=== PATIENT | male | born 1980 | race Two or more races ===

== ENCOUNTER 2019-04-08 09:18 | Inpatient (IN) | payer SELFPAY ==
--- NOTE | 2019-04-08 09:41 | ER Document Report ---
ED Medical Screen (RME) - General Chief Complaint: Blood Pressure Problem Stated Complaint: DIZZINESS Time Seen by Provider: 04/08/19 09:40 Primary Care Provider: SHERIE CASTRO [Primary Care Provider] - Follow up as needed Notes: Barbara neda. 38-year-old male presents with dizziness for 1 month. Patient states it got worse yesterday. States it is more constant than usual. No nausea no vomiting. Patient states he has felt chills and coughing since yesterday. Nontoxic, well-appearing. I have greeted and performed a rapid initial assessment of this patient. A comprehensive ED assessment and evaluation of the patient, analysis of test results and completion of the medical decision making process with be conducted by additional ED providers. Physical Exam - Vital signs Vitals: Temp Pulse Resp BP Pulse Ox 97.4 F 97 16 112/79 98 04/08/19 09:26 04/08/19 09:26 04/08/19 09:26 04/08/19 09:26 04/08/19 09:26 Course - Vital Signs Vital signs: Temp Pulse Resp BP Pulse Ox 97.4 F 97 16 112/79 98 04/08/19 09:26 04/08/19 09:26 04/08/19 09:26 04/08/19 09:26 04/08/19 09:26 Doctor's Discharge - Discharge Referrals: SHERIE CASTRO [Primary Care Provider] - Follow up as needed
[2019-04-08 10:32] LABS: ABSOLUTE LYMPHOCYTES (AUTO) 0.9 10^3/uL (0.5-4.7); ABSOLUTE MONOCYTES (AUTO) 0.3 10^3/uL (0.1-1.4); ABSOLUTE NEUT (AUTO) 6.5 10^3/uL (1.7-8.2); BASOPHILS % (AUTO) 0.1 % (0-2); HEMOGLOBIN 18.1 g/dL (13.5-17.0); LYMPHOCYTES % (AUTO) 11.2 % (13-45); MEAN CORPUSCULAR HEMOGLOBIN 30.5 pg (27.0-33.4); MEAN CORPUSCULAR HGB CONC 31.3 g/dL (32.0-36.0); MEAN CORPUSCULAR VOLUME 97 fl (80-97); MONOCYTES % (AUTO) 3.9 % (3-13); PLATELET COUNT 306 10^3/uL (150-450); RED BLOOD COUNT 5.94 10^6/uL (4.35-5.55); RED CELL DISTRIBUTION WIDTH 13.6 % (11.5-14.0); SEGMENTED NEUTROPHILS % (AUTO) 84.8 % (42-78); TOTAL CELLS COUNTED % (AUTO) 100 %; WHITE BLOOD COUNT 7.6 10^3/uL (4.0-10.5)
[2019-04-08 10:34] LABS: APPEARANCE,URINE CLEAR; BILIRUBIN,URINE NEGATIVE (NEGATIVE); COLOR,URINE COLORLESS; GLUCOSE, URINE >=500 mg/dL (NEGATIVE); KETONES,URINE 80 mg/dL (NEGATIVE); PROTEIN,URINE NEGATIVE (NEGATIVE); UROBILINOGEN,URINE NEGATIVE mg/dL (<2.0)
[2019-04-08 10:34] LABS: HEMATOCRIT 57.9 % (37.9-51.0)
--- NOTE | 2019-04-08 10:38 | RADIOLOGY REPORT (SQ) ---
EXAM DESCRIPTION: CHEST 2 VIEWS COMPLETED DATE/TIME: 04/08/2019 10:16 am REASON FOR STUDY: cough COMPARISON: None. EXAM PARAMETERS: NUMBER OF VIEWS: two views TECHNIQUE: Digital Frontal and Lateral radiographic views of the chest acquired. RADIATION DOSE: NA LIMITATIONS: none FINDINGS: LUNGS AND PLEURA: No opacities, masses or pneumothorax. No pleural effusion. MEDIASTINUM AND HILAR STRUCTURES: No masses or contour abnormalities. HEART AND VASCULAR STRUCTURES: Heart normal size. No evidence for failure. BONES: No acute findings. HARDWARE: None in the chest. OTHER: No other significant finding. IMPRESSION: NO ACUTE RADIOGRAPHIC FINDING IN THE CHEST. TECHNICAL DOCUMENTATION: JOB ID: [id number]- All Rights Reserved Reading location - IP/workstation name: [email or web address]
[2019-04-08 11:00] LABS: ALKALINE PHOSPHATASE 180 U/L (38-126); ASPARTATE AMINO TRANSFERASE 40 U/L (17-59); BILIRUBIN,DIRECT 0.4 mg/dL (0.0-0.4); BILIRUBIN,TOTAL 0.6 mg/dL (0.2-1.3); BLOOD UREA NITROGEN 33 mg/dL (7-20); CALCIUM 10.8 mg/dL (8.4-10.2); CHLORIDE 97 mmol/L (98-107); POTASSIUM 5.7 mmol/L (3.6-5.0)
[2019-04-08 11:05] LABS: TOTAL PROTEIN 7.8 g/dL (6.3-8.2)
[2019-04-08 11:09] LABS: CARBON DIOXIDE 16 mmol/L (22-30)
[2019-04-08 11:15] LABS: ANION GAP 31 (5-19)
[2019-04-08 11:17] LABS: GLUCOSE 1203 mg/dL (75-110)
--- NOTE | 2019-04-08 11:20 | ER Document Report ---
ED General - General Chief Complaint: Dizziness Stated Complaint: DIZZINESS Time Seen by Provider: 04/08/19 09:40 Primary Care Provider: SHERIE CASTRO [NO LOCAL MD] - Follow up as needed Notes: HPI: Patient is a 38-year male with no past medical history who states for 3 weeks a multitude of symptoms. He states a mild intermittent headache, lightheadedness, some chest discomfort without palpitations or radiation to his back. He also states some bilateral leg pain. He states also he has been having some feelings of needing to urinate but states a decreased amount of urine. He denies any back pain, fevers, vomiting, or diarrhea. We used the environmental health nurse for my interview. ROS: See HPI All other review of systems reviewed and otherwise negative Reviewed vital signs and nursing note as charted by RN. PHYSICAL EXAM: CONSTITUTIONAL: Alert and oriented and responds appropriately to questions. Well-appearing; well-nourished HEAD: Normocephalic; atraumatic EYES: PERRL; no nystagmus noted; sclerae non-icteric ENT: Normal nose; no rhinorrhea; moist mucous membranes; pharynx without lesions noted NECK: Supple without meningismus; non-tender; no cervical lymphadenopathy, no masses CARD: Regular rate and rhythm; no murmurs; symmetric distal pulses RESP: Normal chest excursion without splinting or tachypnea; breath sounds clear and equal bilaterally; no wheezes, no rhonchi, no rales ABD/GI: Normal bowel sounds; non-distended; soft, non-tender; no palpable organomegaly or masses BACK: The back appears normal and is non-tender to palpation to deep palpation of all 4 quadrants of the abdomen EXT: Normal ROM in all joints; non-tender to palpation; no edema SKIN: No acute lesions noted NEURO: CN 2-12 intact; 5/5 bilateral upper and lower extremity strength with sensation intact to light touch PSYCH: The patient's mood and manner are appropriate. Grooming and personal hyg iene are appropriate. TRAVEL OUTSIDE OF THE [place] IN LAST 30 DAYS: No - Related Data Allergies/Adverse Reactions: No Known Allergies Allergy (Verified 04/08/19 09:49) Home Medications: metoporolol ER 100mg daily. zyrtec 10mg daily. Zpack follow instructions on bottle. Past Medical History - Social History Smoking Status: Never Smoker Patient has suicidal ideation: No Patient has homicidal ideation: No Physical Exam - Vital signs Vitals: Temp Pulse Resp BP Pulse Ox 97.4 F 97 16 112/79 98 04/08/19 09:26 04/08/19 09:26 04/08/19 09:26 04/08/19 09:26 04/08/19 09:26 Course - Re-evaluation Re-evalutation: Given the above history and physical examination, we will obtain basic labs, liver panel, total CK, urine analysis, CT scan of the head, EKG, and x-ray of the chest. I would like to evaluate for the possibility of dehydration given the bilateral leg cramping with decreased urination. Patient denies being febrile. Vital signs as recorded with positive orthostatics. A liter of fluid has been provided. 04/08/19 11:19 - Vital Signs Vital signs: Temp Pulse Resp BP Pulse Ox 97.4 F 88 16 122/87 H 98 04/08/19 09:26 04/08/19 10:54 04/08/19 09:26 04/08/19 10:54 04/08/19 09:26 - Laboratory Result Diagrams: 04/08/19 10:00 04/08/19 10:00 Laboratory results interpreted by me: 04/08/19 04/08/19 04/08/19 09:54 10:00 10:00 RBC 5.94 H Hgb 18.1 H Hct 57.9 H MCHC 31.3 L Lymph % (Auto) 11.2 L Seg Neutrophils % 84.8 H Potassium 5.7 H Chloride 97 L Carbon Dioxide 16 L Anion Gap 31 H BUN 33 H Creatinine 1.39 H Est GFR (MDRD) Non-Af 57 L Glucose 1203 H* Calcium 10.8 H ALT 56 H Alkaline Phosphatase 180 H Urine Glucose (UA) >=500 H Urine Ketones 80 H Discharge - Discharge Referrals: LOCALMD,NO [NO LOCAL MD] - Follow up as needed
[2019-04-08] MEDS ORDERED: NORMAL SALINE 1000 ML 1,000 ML IV ONE ×2 (11:27→11:28)
--- NOTE | 2019-04-08 11:30 | ER Document Report ---
ED General - General Chief Complaint: Dizziness Stated Complaint: DIZZINESS Time Seen by Provider: 04/08/19 09:40 Primary Care Provider: SHERIE CASTRO [NO LOCAL MD] - Follow up as needed Notes: HPI: Patient is a 38-year-old male with no past medical history who states for the last 3 weeks he has had fatigue, bilateral leg cramping's, dry mouth, and some decreased urination. He denies any abdominal discomfort. Patient states he thinks he had a fever around 3 weeks ago but denies any fever since that time. He denies any runny nose, congestion, or coughing. He does state some mild intermittent chest discomfort without any radiation to the back. He does state some bilateral lower extremity intermittent leg cramping without any obvious swelling or trauma. He states he went to an urgent care recently and they told him that he had elevated blood pressure. Patient denies any other medical conditions. The interview was completed through a ceo & co founder. ROS: See HPI All other review of systems reviewed and otherwise negative Reviewed vital signs and nursing note as charted by RN. PHYSICAL EXAM: CONSTITUTIONAL: Alert and oriented and responds appropriately to questions. Well-appearing; well-nourished HEAD: Normocephalic; atraumatic EYES: PERRL; Conjunctivae clear, sclerae non-icteric ENT: Normal nose; no rhinorrhea; dry mucous membranes; pharynx without lesions noted NECK: Supple without meningismus; non-tender; no cervical lymphadenopathy, no masses CARD: Regular rate and rhythm; no murmurs; symmetric distal pulses RESP: Normal chest excursion without splinting or tachypnea; breath sounds clear and equal bilaterally; no wheezes, no rhonchi, no rales ABD/GI: Normal bowel sounds; non-distended; soft, non-tender; no palpable organomegaly or masses BACK: The back appears normal and is non-tender to palpation EXT: Normal ROM in all joints; non-tender to palpation; no edema SKIN: No acute lesions noted NEURO: CN 2-12 intact; 5/5 bilateral upper and lower extremity strength with sensation intact to light touch PSYCH: The patient's mood and manner are appropriate. Grooming and personal hygiene are appropriate. TRAVEL OUTSIDE OF THE [place] IN LAST 30 DAYS: No - Related Data Allergies/Adverse Reactions: No Known Allergies Allergy (Verified 04/08/19 09:49) Home Medications: metoporolol ER 100mg daily. zyrtec 10mg daily. Connerck follow instructions on bottle. Past Medical History - Social History Smoking Status: Never Smoker Family History: Reviewed & Not Pertinent Patient has suicidal ideation: No Patient has homicidal ideation: No Physical Exam - Vital signs Vitals: Temp Pulse Resp BP Pulse Ox 97.4 F 97 16 112/79 98 04/08/19 09:26 04/08/19 09:26 04/08/19 09:26 04/08/19 09:26 04/08/19 09:26 Course - Re-evaluation Re-evalutation: Given the above history and physical, I will obtain basic labs, liver panel, x- ray of the chest and EKG, and provide fluids. Orthostatics as recorded. 04/08/19 11:30 Glucose as recorded. No history of diabetes. I explained this to the patient through the interpreting service. 2 L of fluid has been provided. We will obtain an VBG. Gap as recorded. 04/08/19 12:19 EKG shows heart of 99, normal sinus rhythm, normal axis, no ST elevation or depression. Left axis deviation. No peak T waves or widened QRS. Venous blood gas as recorded. Patient will be admitted for DKA. Insulin infusion has started. - Vital Signs Vital signs: Temp Pulse Resp BP Pulse Ox 97.4 F 88 16 122/87 H 98 04/08/19 09:26 04/08/19 10:54 04/08/19 09:26 04/08/19 10:54 04/08/19 09:26 - Laboratory Result Diagrams: 04/08/19 10:00 04/08/19 10:00 Laboratory results interpreted by me: 04/08/19 04/08/19 04/08/19 09:54 10:00 10:00 RBC 5.94 H Hgb 18.1 H Hct 57.9 H MCHC 31.3 L Lymph % (Auto) 11.2 L Seg Neutrophils % 84.8 H VBG pH VBG HCO3 Potassium 5.7 H Chloride 97 L Carbon Dioxide 16 L Anion Gap 31 H BUN 33 H Creatinine 1.39 H Est GFR (MDRD) Non-Af 57 L Glucose 1203 H* Calcium 10.8 H ALT 56 H Alkaline Phosphatase 180 H Urine Glucose (UA) >=500 H Urine Ketones 80 H 04/08/19 13:00 RBC Hgb Hct MCHC Lymph % (Auto) Seg Neutrophils % VBG pH 7.21 L VBG HCO3 19.6 L Potassium Chloride Carbon Dioxide Anion Gap BUN Creatinine Est GFR (MDRD) Non-Af Glucose Calcium ALT Alkaline Phosphatase Urine Glucose (UA) Urine Ketones Critical Care Note - Critical Care Note Total time excluding time spent on procedures (mins): 45 Discharge - Discharge Clinical Impression: Diabetic ketoacidosis Qualifiers: Diabetes mellitus type: type 1 Diabetes mellitus complication detail: without coma Qualified Code(s): E10.10 - Type 1 diabetes mellitus with ketoacidosis without coma Condition: Serious Disposition: ADMITTED INPATIENT Admitting Provider: Riki (Hospitalist) Unit Admitted: IMCU Referrals: LOCALMD,NO [NO LOCAL MD] - Follow up as needed
[2019-04-08 11:33] LABS: CREATINE KINASE 168 U/L (55-170)
[2019-04-08 11:39] LABS: ALCOHOL < 10 mg/dL (NONE DETECTED)
--- NOTE | 2019-04-08 12:21 | EKG REPORT ---
SEVERITY:- OTHERWISE NORMAL ECG - SINUS RHYTHM BORDERLINE RIGHT AXIS DEVIATION : Confirmed by: John Catalan MD 08-Apr-2019 12:20:44
[2019-04-08] MEDS ORDERED: NORMAL SALINE 100 ML with INSULIN REGULAR, HUMAN 100 UNIT IV PRN ×2 (13:11)
[2019-04-08] MEDS ORDERED: GLUCAGON,HUMAN RECOMB 1 MG INJ IM PRN ×2 (13:11→14:42)
[2019-04-08] MEDS ORDERED: DEXTROSE 40% GEL 15 GM TUBE PO PRN ×4 (13:11→14:42)
[2019-04-08] MEDS ORDERED: DEXTROSE 50%-WATER 25 GM/50 ML DISP.SYRIN IV PRN ×4 (13:11→14:42)
[2019-04-08 13:12] LABS: VENOUS BLOOD BASE EXCESS -8.6 mmol/L; VENOUS BLOOD HCO3 19.6 mmol/L (20-32); VENOUS BLOOD PCO2 50.2 mmHg (35-63); VENOUS BLOOD PH 7.21 (7.30-7.42)
[2019-04-08] MEDS ORDERED: INSULIN REG, HUMAN 100 UNIT/ML 3 ML VIAL (PYX) IV ONE (13:42)
[2019-04-08] MEDS: NORMAL SALINE 100 ML with INSULIN REGULAR, HUMAN 100 UNIT IV PRN ×2 (14:00)
[2019-04-08] MEDS ORDERED: NORMAL SALINE 1000 ML 1,000 ML IV PRN (14:43)
[2019-04-08] MEDS ORDERED: TEMAZEPAM 7.5 MG CAPSULE PO PRN (14:47)
[2019-04-08] MEDS ORDERED: IPRATROPIUM/ALBUTEROL 0.5-2.5 MG/3 ML AMPUL NEB PRN (14:47)
[2019-04-08] MEDS ORDERED: ACETAMINOPHEN 325 MG TABLET PO PRN (14:47)
[2019-04-08] MEDS ORDERED: PROMETHAZINE HCL INJ 25 MG/1 ML VIAL IV PRN (14:47)
[2019-04-08] MEDS ORDERED: OXYCODONE-ACETAMINOPHEN 5-325 MG TABLET PO PRN (14:47)
[2019-04-08] MEDS ORDERED: ONDANSETRON HCL INJ/PF 4 MG/2 ML SDV IV PRN (14:47)
[2019-04-08] MEDS ORDERED: CALCIUM GLUCONATE 1000 MG/10 ML INJ IV ONE (15:35)
--- NOTE | 2019-04-08 15:35 | PDOC H&P ---
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 Patient endorses family history of diabetes however stating that he has not been diagnosed with diabetes, in ED he was noted to be very hyperglycemic with elevated anion gap, and positive orthostasis. Social History Smoking Status: Never Smoker Family History Family History: Reviewed & Not Pertinent Parental Family History Reviewed: Yes Children Family History Reviewed: Yes Sibling(s) Family History Reviewed.: Yes Medication/Allergy Allergies/Adverse Reactions: No Known Allergies Allergy (Verified 04/08/19 09:49) Review of Systems Review of Systems: as per hpi Physical Exam Vital Signs: Temp Pulse Resp BP Pulse Ox 97.4 F 88 16 122/87 H 98 04/08/19 09:26 04/08/19 10:54 04/08/19 09:26 04/08/19 10:54 04/08/19 09:26 Intake & Output 04/07/19 04/08/19 04/09/19 06:59 06:59 06:59 Intake Total 1999 Balance 1999 Weight 88 kg General appearance: PRESENT: no acute distress, well-developed, well-nourished Head exam: PRESENT: atraumatic, normocephalic Respiratory exam: PRESENT: clear to auscultation vee. ABSENT: rales, rhonchi, wheezes Cardiovascular exam: PRESENT: RRR. ABSENT: diastolic murmur, rubs, systolic murmur GI/Abdominal exam: PRESENT: normal bowel sounds, soft. ABSENT: distended, guarding, mass, organolmegaly, rebound, tenderness Neurological exam: PRESENT: alert, awake, oriented to person, oriented to place, oriented to time, oriented to situation, CN II-XII grossly intact. ABSENT: motor sensory deficit Skin exam: PRESENT: dry, intact, warm. ABSENT: cyanosis, rash Results Laboratory Results: 04/08/19 10:00 04/08/19 10:00 04/08/19 04/08/19 04/08/19 09:54 10:00 10:00 WBC 7.6 RBC 5.94 H Hgb 18.1 H Hct 57.9 H MCV 97 MCH 30.5 MCHC 31.3 L RDW 13.6 Plt Count 306 Seg Neutrophils % 84.8 H VBG pH VBG pCO2 VBG HCO3 VBG Base Excess Sodium 144.3 Potassium 5.7 H Chloride 97 L Carbon Dioxide 16 L Anion Gap 31 H BUN 33 H Creatinine 1.39 H Est GFR ( Amer) > 60 Glucose 1203 H* Calcium 10.8 H Total Bilirubin 0.6 AST 40 Alkaline Phosphatase 180 H Total Protein 7.8 Albumin 5.0 Urine Color COLORLESS Urine Appearance CLEAR Urine pH 5.0 Ur Specific [place] 1.030 Urine Protein NEGATIVE Urine Glucose (UA) >=500 H Urine Ketones 80 H Urine Blood NEGATIVE Urine RBC (Auto) 0 04/08/19 04/08/19 12:15 13:00 WBC RBC Hgb Hct MCV MCH MCHC RDW Plt Count Seg Neutrophils % VBG pH Cancelled 7.21 L VBG pCO2 Cancelled 50.2 VBG HCO3 Cancelled 19.6 L VBG Base Excess Cancelled -8.6 Sodium Potassium Chloride Carbon Dioxide Anion Gap BUN Creatinine Est GFR ( Amer) Glucose Calcium Total Bilirubin AST Alkaline Phosphatase Total Protein Albumin Urine Color Urine Appearance Urine pH Ur Specific [place] Urine Protein Urine Glucose (UA) Urine Ketones Urine Blood Urine RBC (Auto) 04/08/19 04/08/19 10:00 10:00 Creatine Kinase 168 Troponin I < 0.012 Impressions: Chest X-Ray 04/08/19 09:41 IMPRESSION: NO ACUTE RADIOGRAPHIC FINDING IN THE CHEST. Assessment and Plan - Diagnosis (1) Diabetic ketoacidosis Qualifiers: Diabetes mellitus type: type 2 Diabetes mellitus complication detail: without coma Qualified Code(s): E11.10 - Type 2 diabetes mellitus with ketoacidosis without coma Is this a current diagnosis for this admission?: Yes Plan: Most likely due to underlying new onset diabetes. Likely type II given family history and age. Admit to IMCU, aggressive volume resuscitation guided by volume status, DKA protocol. (2) Diabetes mellitus, new onset Is this a current diagnosis for this admission?: Yes Plan: Most likely type II given history and age. Diabetic diet, basal, sliding scale and correctional insulin. Hypoglycemia protocol. Accu-Chek. Diabetic diet. (3) Dehydration Is this a current diagnosis for this admission?: Yes Plan: Most likely due to nausea vomiting and low p.o. intake, due to underlying new onset diabetes. Aggressive volume resuscitation guided by volume status. (4) Orthostatic hypotension Is this a current diagnosis for this admission?: Yes Plan: Due to low p.o. intake and vomiting. Aggressive volume resuscitation guided by volume status. Monitor vitals. Fall precautions. (5) PATRICA (acute kidney injury) Is this a current diagnosis for this admission?: Yes Plan: Prerenal most likely due to intravascular volume depletion. Denies any history of CKD. Volume resuscitation guided by volume status. Monitor electrolytes and replete as needed. Avoid nephrotoxic meds. (6) Hyperkalemia Is this a current diagnosis for this admission?: Yes Plan: Likely due to metabolic acidosis. Hyperkalemia protocol. Treat underlying metabolic acidosis.
[2019-04-08] MEDS: PANTOPRAZOLE SODIUM 40 MG TABLET.DR PO SCH (17:18)
[2019-04-08] MEDS: DOCUSATE SODIUM 100 MG/10 ML UDC PO SCH (17:19)
[2019-04-08 18:01] LABS: BLOOD UREA NITROGEN 31 mg/dL (7-20); CALCIUM 10.7 mg/dL (8.4-10.2); CARBON DIOXIDE 16 mmol/L (22-30); CHLORIDE 114 mmol/L (98-107)
[2019-04-08 18:14] LABS: ANION GAP 26 (5-19)
[2019-04-08 18:16] LABS: GLUCOSE 578 mg/dL (75-110)
[2019-04-08 18:21] LABS: POTASSIUM 4.3 mmol/L (3.6-5.0)
[2019-04-08] MEDS ORDERED: 1/2 NORMAL SALINE 1,000 ML IV PRN (18:23)
[2019-04-08] MEDS: NORMAL SALINE 1000 ML 1,000 ML IV PRN ×2 (19:34→21:37)
[2019-04-08] MEDS: HEPARIN SOD (PORCINE) 5,000 UNIT/ML 1 ML VIAL SUBCUT SCH (21:32)
[2019-04-08 23:04] LABS: ANION GAP 19 (5-19); BLOOD UREA NITROGEN 30 mg/dL (7-20); CARBON DIOXIDE 19 mmol/L (22-30); CHLORIDE 116 mmol/L (98-107); POTASSIUM 4.4 mmol/L (3.6-5.0)
[2019-04-08 23:15] LABS: GLUCOSE 548 mg/dL (75-110)
[2019-04-09] MEDS: NORMAL SALINE 100 ML with INSULIN REGULAR, HUMAN 100 UNIT IV PRN ×2 (01:21)
[2019-04-09 02:29] LABS: ANION GAP 11 (5-19); BLOOD UREA NITROGEN 29 mg/dL (7-20); CALCIUM 10.1 mg/dL (8.4-10.2); CARBON DIOXIDE 25 mmol/L (22-30); CHLORIDE 122 mmol/L (98-107); GLUCOSE 316 mg/dL (75-110); POTASSIUM 3.9 mmol/L (3.6-5.0)
[2019-04-09] MEDS: NORMAL SALINE 1000 ML 1,000 ML IV PRN (04:20)
[2019-04-09] MEDS: HEPARIN SOD (PORCINE) 5,000 UNIT/ML 1 ML VIAL SUBCUT SCH ×3 (05:41→22:00)
[2019-04-09] MEDS: PANTOPRAZOLE SODIUM 40 MG TABLET.DR PO SCH ×2 (05:52→16:30)
[2019-04-09 06:23] LABS: ABSOLUTE LYMPHOCYTES (AUTO) 1.9 10^3/uL (0.5-4.7); ABSOLUTE MONOCYTES (AUTO) 0.6 10^3/uL (0.1-1.4); ABSOLUTE NEUT (AUTO) 6.2 10^3/uL (1.7-8.2); BASOPHILS % (AUTO) 0.3 % (0-2); EOSINOPHILS % (AUTO) 0.3 % (0-6); HEMATOCRIT 51.1 % (37.9-51.0); HEMOGLOBIN 17.8 g/dL (13.5-17.0); LYMPHOCYTES % (AUTO) 21.9 % (13-45); MEAN CORPUSCULAR HGB CONC 34.8 g/dL (32.0-36.0); MONOCYTES % (AUTO) 6.3 % (3-13); PLATELET COUNT 241 10^3/uL (150-450); RED BLOOD COUNT 5.75 10^6/uL (4.35-5.55); RED CELL DISTRIBUTION WIDTH 12.7 % (11.5-14.0); SEGMENTED NEUTROPHILS % (AUTO) 71.2 % (42-78); TOTAL CELLS COUNTED % (AUTO) 100 %; WHITE BLOOD COUNT 8.8 10^3/uL (4.0-10.5)
[2019-04-09 06:29] LABS: MEAN CORPUSCULAR VOLUME 89 fl (80-97)
[2019-04-09 06:40] LABS: ANION GAP 9 (5-19); BLOOD UREA NITROGEN 27 mg/dL (7-20); CALCIUM 10.2 mg/dL (8.4-10.2); CARBON DIOXIDE 26 mmol/L (22-30); CHLORIDE 124 mmol/L (98-107); GLUCOSE 136 mg/dL (75-110); POTASSIUM 3.9 mmol/L (3.6-5.0)
[2019-04-09] MEDS ORDERED: DEXTROSE 50%-WATER 25 GM/50 ML DISP.SYRIN IV PRN ×2 (07:21)
[2019-04-09] MEDS ORDERED: DEXTROSE 40% GEL 15 GM TUBE PO PRN ×2 (07:21)
[2019-04-09] MEDS ORDERED: GLUCAGON,HUMAN RECOMB 1 MG INJ IM PRN (07:21)
[2019-04-09] MEDS ORDERED: 1/2 NORMAL SALINE 1,000 ML IV PRN (07:23)
[2019-04-09] MEDS: INSULIN LISPRO 100 UNIT/ML 3 ML VIAL SUBCUT SCH ×4 (09:07→21:38)
[2019-04-09] MEDS: DOCUSATE SODIUM 100 MG/10 ML UDC PO SCH ×2 (09:09→17:25)
[2019-04-09] MEDS: METFORMIN HCL 500 MG TABLET PO SCH ×2 (09:09→16:29)
[2019-04-09] MEDS: GLIPIZIDE 5 MG TABLET PO SCH ×2 (09:09→16:35)
[2019-04-09] MEDS ORDERED: INSULIN GLARGINE,HUM.REC.ANLOG 1,000 UNIT/10 ML VIAL SUBCUT SCH ×2 (10:00)
--- NOTE | 2019-04-09 11:27 | PDOC PROGRESS REPORT ---
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 Patient endorses family history of diabetes however stating that he has not been diagnosed with diabetes, in ED he was noted to be very hyperglycemic with elevated anion gap, and positive orthostasis. 04/09/2019. No acute events overnight. Patient comfortably seated no apparent distress. Nausea vomiting abdominal pain has resolved, patient eating his breakfast, denies any fever, chills, nausea, vomiting, diarrhea, constipation or any urinary symptoms. Currently off of insulin drip. Reason For Visit: DKA,KALEMIA,HYPERNATREMIA,ORTHOSTATIC HYPOTENSION Physical Exam Vital Signs: Temp Pulse Resp BP Pulse Ox 98.2 F 88 18 113/62 100 04/09/19 07:25 04/09/19 07:25 04/09/19 07:25 04/09/19 07:25 04/09/19 07:25 Intake & Output 04/08/19 04/09/19 04/10/19 06:59 06:59 06:59 Intake Total 4700 30 Output Total 1925 Balance 2775 30 Weight 87.3 kg General appearance: PRESENT: no acute distress, well-developed, well-nourished Head exam: PRESENT: atraumatic, normocephalic Respiratory exam: PRESENT: clear to auscultation vee. ABSENT: rales, rhonchi, wheezes Cardiovascular exam: PRESENT: RRR. ABSENT: diastolic murmur, rubs, systolic murmur GI/Abdominal exam: PRESENT: normal bowel sounds, soft. ABSENT: distended, guarding, mass, organolmegaly, rebound, tenderness Extremities exam: PRESENT: full ROM. ABSENT: calf tenderness, clubbing, pedal edema Neurological exam: PRESENT: alert, awake, oriented to person, oriented to place, oriented to time, oriented to situation, CN II-XII grossly intact. ABSENT: motor sensory deficit Results Laboratory Results: 04/09/19 05:30 04/09/19 05:30 04/08/19 04/08/19 04/08/19 10:00 12:15 13:00 WBC RBC Hgb Hct MCV MCH MCHC RDW Plt Count Seg Neutrophils % VBG pH Cancelled 7.21 L VBG pCO2 Cancelled 50.2 VBG HCO3 Cancelled 19.6 L VBG Base Excess Cancelled -8.6 Sodium Potassium Chloride Carbon Dioxide Anion Gap BUN Creatinine Est GFR ( Amer) Glucose Calcium Magnesium TSH 0.44 L 04/08/19 04/08/19 04/08/19 17:15 18:48 21:28 WBC RBC Hgb Hct MCV MCH MCHC RDW Plt Count Seg Neutrophils % VBG pH VBG pCO2 VBG HCO3 VBG Base Excess Sodium 156.0 H Potassium 4.3 D Chloride 114 H Carbon Dioxide 16 L Anion Gap 26 H BUN 31 H Creatinine 1.31 H Est GFR ( Amer) > 60 Glucose 578 H* 529 H* 633 H* Calcium 10.7 H Magnesium TSH 04/08/19 04/09/19 04/09/19 22:29 01:45 05:30 WBC RBC Hgb Hct MCV MCH MCHC RDW Plt Count Seg Neutrophils % VBG pH VBG pCO2 VBG HCO3 VBG Base Excess Sodium 154.0 H 158.0 H 159.0 H Potassium 4.4 3.9 3.9 Chloride 116 H 122 H 124 H Carbon Dioxide 19 L 25 26 Anion Gap 19 11 9 BUN 30 H 29 H 27 H Creatinine 1.14 1.08 0.97 Est GFR ( Amer) > 60 > 60 > 60 Glucose 548 H* 316 H 136 H Calcium 10.0 10.1 10.2 Magnesium 2.9 H TSH 04/09/19 05:30 WBC 8.8 RBC 5.75 H Hgb 17.8 H Hct 51.1 H MCV 89 D MCH 31.0 MCHC 34.8 RDW 12.7 Plt Count 241 Seg Neutrophils % 71.2 VBG pH VBG pCO2 VBG HCO3 VBG Base Excess Sodium Potassium Chloride Carbon Dioxide Anion Gap BUN Creatinine Est GFR ( Amer) Glucose Calcium Magnesium TSH 04/08/19 04/08/19 10:00 10:00 Creatine Kinase 168 Troponin I < 0.012 Impressions: Chest X-Ray 04/08/19 09:41 IMPRESSION: NO ACUTE RADIOGRAPHIC FINDING IN THE CHEST. Assessment and Plan - Diagnosis (1) Diabetes mellitus, new onset Is this a current diagnosis for this admission?: Yes Plan: Most likely type II given history and age. Hemoglobin A1c>14% Continue diabetic diet, basal, sliding scale and correctional insulin. Hypoglycemia protocol. Accu-Chek. Diabetic education. Unfortunately patient does not have health insurance and will not be able to buy his Lantus. We will try to switch over to oral antidiabetics while minimizing insulin requirement. Discharge planning consulted. Continue metformin thousand milligrams p.o. twice daily. Continue glipizide 5 mg p.o. twice daily. (2) Dehydration Is this a current diagnosis for this admission?: Yes Plan: Euvolemic. Normotensive. Most likely due to nausea vomiting and low p.o. intake, due to underlying new o nset diabetes. DC IV fluids. Monitor vital status and volume status. (3) Orthostatic hypotension Is this a current diagnosis for this admission?: Yes Plan: Resolved. Due to low p.o. intake and vomiting. Monitor vitals, volume status, fall precautions. Encourage p.o. fluid intake. (4) PATRICA (acute kidney injury) Is this a current diagnosis for this admission?: Yes Plan: Resolved. Prerenal most likely due to intravascular volume depletion. Denies any history of CKD. DC IV fluids. Monitor electrolytes and replace as needed. Avoid nephrotoxic meds. (5) Hyperkalemia Is this a current diagnosis for this admission?: Yes Plan: Resolved. Likely due to metabolic acidosis. Started on hyperkalemia protocol. Treat underlying metabolic acidosis. (6) Diabetic ketoacidosis Qualifiers: Diabetes mellitus type: type 2 Diabetes mellitus complication detail: without coma Qualified Code(s): E11.10 - Type 2 diabetes mellitus with ketoacidosis without coma Is this a current diagnosis for this admission?: Yes Plan: Resolved. Switch to subcutaneous insulin. Most likely due to underlying new onset diabetes. Likely type II given family h istory and age. Was admitted to [facility], aggressive volume resuscitation guided by volume status, DKA protocol.
[2019-04-09] MEDS ORDERED: INSULIN GLARGINE,HUM.REC.ANLOG 1,000 UNIT/10 ML VIAL SUBCUT ONE (13:28)
[2019-04-09] MEDS ORDERED: INSULIN GLARGINE,HUM.REC.ANLOG 1,000 UNIT/10 ML VIAL (PYX) SUBCUT ONE (14:00)
[2019-04-09 14:53] LABS: ANION GAP 7 (5-19); BLOOD UREA NITROGEN 27 mg/dL (7-20); CALCIUM 9.3 mg/dL (8.4-10.2); CARBON DIOXIDE 25 mmol/L (22-30); CHLORIDE 121 mmol/L (98-107); POTASSIUM 4.1 mmol/L (3.6-5.0)
[2019-04-09 15:05] LABS: GLUCOSE 404 mg/dL (75-110)
[2019-04-09] MEDS ORDERED: BISACODYL 5 MG TABEC PO ONE (22:00)
[2019-04-09] MEDS ORDERED: INSULIN LISPRO 100 UNIT/ML 3 ML VIAL SUBCUT ONE (23:30)
[2019-04-10 05:06] LABS: BLOOD UREA NITROGEN 24 mg/dL (7-20); CALCIUM 9.6 mg/dL (8.4-10.2); CARBON DIOXIDE 30 mmol/L (22-30); CHLORIDE 120 mmol/L (98-107); GLUCOSE 250 mg/dL (75-110); POTASSIUM 3.8 mmol/L (3.6-5.0)
[2019-04-10 05:12] LABS: ANION GAP 4 (5-19)
[2019-04-10] MEDS: HEPARIN SOD (PORCINE) 5,000 UNIT/ML 1 ML VIAL SUBCUT SCH ×3 (05:53→22:04)
[2019-04-10] MEDS: PANTOPRAZOLE SODIUM 40 MG TABLET.DR PO SCH ×2 (05:58→17:27)
[2019-04-10] MEDS ORDERED: 1/2 NORMAL SALINE 1,000 ML IV PRN (07:25)
[2019-04-10] MEDS ORDERED: GLIPIZIDE 5 MG TABLET PO SCH (08:00)
[2019-04-10 08:13] LABS: CHOLESTEROL 233.44 mg/dL (0-200); TRIGLYCERIDES 407 mg/dL (<150)
[2019-04-10 08:27] LABS: DIRECT LDL 151 mg/dL (<100)
[2019-04-10] MEDS: INSULIN LISPRO 100 UNIT/ML 3 ML VIAL SUBCUT SCH ×4 (09:09→22:11)
[2019-04-10] MEDS: METFORMIN HCL 500 MG TABLET PO SCH (09:10)
[2019-04-10] MEDS: DOCUSATE SODIUM 100 MG/10 ML UDC PO SCH (09:11)
[2019-04-10] MEDS ORDERED: INSULIN GLARGINE,HUM.REC.ANLOG 1,000 UNIT/10 ML VIAL SUBCUT SCH (10:00)
[2019-04-10] MEDS ORDERED: POLYETHYLENE GLYCOL 3350 POWDER 17 GM/1 PACKET PO ONE (10:30)
--- NOTE | 2019-04-10 10:39 | PDOC PROGRESS REPORT ---
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 Patient endorses family history of diabetes however stating that he has not been diagnosed with diabetes, in ED he was noted to be very hyperglycemic with elevated anion gap, and positive orthostasis. 04/09/2019. No acute events overnight. Patient comfortably seated no apparent distress. Nausea vomiting abdominal pain has resolved, patient eating his breakfast, denies any fever, chills, nausea, vomiting, diarrhea, constipation or any urinary symptoms. Currently off of insulin drip. 04/10/2019. No acute events overnight. Patient complaining of constipation ot herwise denies fever, chills, nausea, vomiting, diarrhea, constipation or any urinary symptoms. Patient still have elevated sodium at blood glucose level not optimized. Possible discharge home tomorrow. Reason For Visit: DKA,KALEMIA,HYPERNATREMIA,ORTHOSTATIC HYPOTENSION Physical Exam Vital Signs: Temp Pulse Resp BP Pulse Ox 97.8 F 76 16 137/73 H 100 04/10/19 07:26 04/10/19 07:26 04/10/19 07:26 04/10/19 07:26 04/10/19 07:26 Intake & Output 04/09/19 04/10/19 04/11/19 06:59 06:59 06:59 Intake Total 4700 1500 Output Total 1925 Balance 2775 1500 Weight 87.3 kg 90.3 kg General appearance: PRESENT: obese Head exam: PRESENT: atraumatic, normocephalic Neck exam: ABSENT: carotid bruit, JVD, lymphadenopathy, thyromegaly Respiratory exam: PRESENT: clear to auscultation vee. ABSENT: rales, rhonchi, wheezes Cardiovascular exam: PRESENT: RRR. ABSENT: diastolic murmur, rubs, systolic murmur GI/Abdominal exam: PRESENT: normal bowel sounds, soft. ABSENT: distended, guarding, mass, organolmegaly, rebound, tenderness Neurological exam: PRESENT: alert, awake, oriented to person, oriented to place, oriented to time, oriented to situation, CN II-XII grossly intact. ABSENT: motor sensory deficit Skin exam: PRESENT: dry, intact, warm. ABSENT: cyanosis, rash Results Laboratory Results: 04/09/19 05:30 04/10/19 04:06 04/09/19 04/09/19 04/10/19 12:00 14:26 04:06 Sodium 152.7 H 153.7 H Potassium 4.1 3.8 Chloride 121 H 120 H Carbon Dioxide 25 30 Anion Gap 7 4 L BUN 27 H 24 H Creatinine 1.07 0.98 Est GFR ( Amer) > 60 > 60 Glucose 410 H* 404 H* 250 H Calcium 9.3 9.6 Magnesium 2.5 H Triglycerides Cholesterol LDL Cholesterol Direct HDL Cholesterol 04/10/19 04:06 Sodium Potassium Chloride Carbon Dioxide Anion Gap BUN Creatinine Est GFR ( Amer) Glucose Calcium Magnesium Triglycerides 407 H Cholesterol 233.44 H LDL Cholesterol Direct 151 H HDL Cholesterol 42 04/08/19 04/08/19 10:00 10:00 Creatine Kinase 168 Troponin I < 0.012 Impressions: Chest X-Ray 04/08/19 09:41 IMPRESSION: NO ACUTE RADIOGRAPHIC FINDING IN THE CHEST. Assessment and Plan - Diagnosis (1) Diabetes mellitus, new onset Is this a current diagnosis for this admission?: Yes Plan: Proving. Not optimized. Most likely type II given history and age. Hemoglobin A1c>14% Continue diabetic diet, basal, sliding scale and correctional insulin. Hypoglycemia protocol. Accu-Chek. Diabetic education. Unfortunately patient does not have health insurance and will not be able to buy his Lantus. We will try to switch over to oral antidiabetics while minimizing insulin requirement. Discharge planning consulted. Continue metformin thousand milligrams p.o. twice daily. Increase glipizide to 10 mg p.o. twice daily. (2) Dehydration Is this a current diagnosis for this admission?: Yes Plan: Euvolemic. Normotensive. Most likely due to nausea vomiting and low p.o. intake, due to underlying new onset diabetes. DC IV fluids. Monitor vital status and volume status. (3) Orthostatic hypotension Is this a current diagnosis for this admission?: Yes Plan: Resolved. Due to low p.o. intake and vomiting. Monitor vitals, volume status, fall precautions. Encourage p.o. fluid intake. (4) PATRICA (acute kidney injury) Is this a current diagnosis for this admission?: Yes Plan: Resolved. Prerenal most likely due to intravascular volume depletion. Denies any history of CKD. DC IV fluids. Monitor electrolytes and replace as needed. Avoid nephrotoxic meds. (5) Hyperkalemia Is this a current diagnosis for this admission?: Yes Plan: Resolved. Likely due to metabolic acidosis. Started on hyperkalemia protocol. Treat underlying metabolic acidosis. (6) Diabetic ketoacidosis Qualifiers: Diabetes mellitus type: type 2 Diabetes mellitus complication detail: without coma Qualified Code(s): E11.10 - Type 2 diabetes mellitus with ketoacidosis without coma Is this a current diagnosis for this admission?: Yes Plan: Resolved. Switch to subcutaneous insulin. Most likely due to underlying new onset diabetes. Likely type II given family history and age. Was admitted to [facility], aggressive volume resuscitation guided by volume status, DKA protocol. (7) Hypernatremia Is this a current diagnosis for this admission?: Yes Plan: Hypovolemic hypernatremia likely due to free water loss due to severe hyperglycemia and DKA. Continue half-normal saline, monitor for seizure, goal of sodium to correct 8-10 mEq in the next 24 hours. (8) Constipation Qualifiers: Constipation type: slow transit constipation Qualified Code(s): K59.01 - Slow transit constipation Is this a current diagnosis for this admission?: Yes Plan: Start on bowel regimen. Encourage high-fiber diet. (9) Hyperlipidemia Is this a current diagnosis for this admission?: Yes Plan: Triglycerides 407, cholesterol 233, LDL 151, HDL 42. Given above lipid profile complicated by new onset diabetes will start on atorvastatin high intensity. Diet and lifestyle modification recommended. Outpatient PCP follow-up for LFT monitoring.
[2019-04-10] MEDS: DOCUSATE SODIUM 100 MG CAPSULE PO SCH ×2 (11:49→17:27)
[2019-04-10] MEDS ORDERED: HUM INSULIN NPH/REG INSULIN HM 100 UNIT/1 ML 3 ML SUBCUT SCH (16:00)
[2019-04-10] MEDS ORDERED: ATORVASTATIN CALCIUM 40 MG TABLET PO SCH (22:00)
[2019-04-11] MEDS: HEPARIN SOD (PORCINE) 5,000 UNIT/ML 1 ML VIAL SUBCUT SCH ×2 (05:04→16:52)
[2019-04-11] MEDS: PANTOPRAZOLE SODIUM 40 MG TABLET.DR PO SCH ×2 (05:17→16:25)
[2019-04-11 05:54] LABS: BLOOD UREA NITROGEN 19 mg/dL (7-20); CALCIUM 9.3 mg/dL (8.4-10.2); CHLORIDE 112 mmol/L (98-107); GLUCOSE 238 mg/dL (75-110); POTASSIUM 3.8 mmol/L (3.6-5.0)
[2019-04-11 06:13] LABS: CARBON DIOXIDE 29 mmol/L (22-30)
[2019-04-11 06:18] LABS: ANION GAP 5 (5-19)
[2019-04-11] MEDS: HUM INSULIN NPH/REG INSULIN HM 100 UNIT/1 ML 3 ML SUBCUT SCH ×2 (07:49→16:33)
[2019-04-11] MEDS: INSULIN LISPRO 100 UNIT/ML 3 ML VIAL SUBCUT SCH ×3 (07:50→16:35)
[2019-04-11] MEDS ORDERED: BISACODYL 10 MG SUPP.RECT PR ONE ×2 (09:30→11:00)
[2019-04-11] MEDS: DOCUSATE SODIUM 100 MG CAPSULE PO SCH ×2 (10:37→17:44)
[2019-04-11] MEDS ORDERED: MAG HYDROX/AL HYDROX/SIMETH SUSP 30 ML UDCUP PO ONE (14:10)
[2019-04-11] MEDS ORDERED: METFORMIN HCL 500 MG TABLET PO ONE (14:10)
[2019-04-11] MEDS ORDERED: METFORMIN HCL 500 MG TABLET PO SCH (16:00)
[2019-04-11 18:25] VITALS: BP 141/74
--- NOTE | 2019-04-13 17:04 | PDOC DISCHARGE SUMMARY ---
Impression - Admit/DC Date/PCP Admission Date/Primary Care Provider: 04/08/19 14:30 Discharge Date: 04/11/19 - Discharge Diagnosis (1) Diabetes mellitus, new onset Is this a current diagnosis for this admission?: Yes (2) Dehydration Is this a current diagnosis for this admission?: Yes (3) Orthostatic hypotension Is this a current diagnosis for this admission?: Yes (4) PATRICA (acute kidney injury) Is this a current diagnosis for this admission?: Yes (5) Hyperkalemia Is this a current diagnosis for this admission?: Yes (6) Diabetic ketoacidosis Is this a current diagnosis for this admission?: Yes (7) Hypernatremia Is this a current diagnosis for this admission?: Yes (8) Constipation Is this a current diagnosis for this admission?: Yes (9) Hyperlipidemia Is this a current diagnosis for this admission?: Yes - Additional Information Discharge Diet: As Tolerated, Diabetic Discharge Activity: Activity As Tolerated Referrals: [facility] [Outside] (Called @ 9:37 for appointment was told by Billie "They don't have the drs schedules so I would have to call back nxt week for appointment". Put appt. in followup book.) Prescriptions: Hum Insulin NPH/Reg Insulin Hm [Insulin Inj 70-30 (100 Unit/1 ml) 3 ml Vial] 28 unit SUBCUT AC 30 Days #2 unit Atorvastatin Calcium [Lipitor 40 mg Tablet] 40 mg PO QHS 30 Days #30 tablet Home Medications: Cetirizine HCl [Zyrtec 10 mg Tablet] 10 mg PO DAILY 04/08/19 Metoprolol Succinate [Toprol Xl] 100 mg PO DAILY 04/08/19 Atorvastatin Calcium [Lipitor 40 mg Tablet] 40 mg PO QHS 30 Days #30 tablet 04/11/19 Hum Insulin NPH/Reg Insulin Hm [Insulin Inj 70-30 (100 Unit/1 ml) 3 ml Vial] 28 unit SUBCUT AC 30 Days #2 unit 04/11/19 History of Present Illiness History of Present Illness: 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 Patient endorses family history of diabetes however stating that he has not been diagnosed with diabetes, in ED he was noted to be very hyperglycemic with elevated anion gap, and positive orthostasis. Hospital Course Hospital Course: (1) Diabetes mellitus, new onset Improved. Not optimized. Most likely type II given history and age. Hemoglobin A1c>14% Was a started on diabetic diet, basal, sliding scale and correctional insulin. Hypoglycemia protocol. Accu-Chek. Unfortunately patient does not have health insurance and will not be able to buy his Lantus. Discharge planning consulted for medication assistance but unfortunately patient did not qualify for Medicaid. Please refer to discharge planning note. Was discharged on NPH/regular 70/30 and metformin 500 mg p.o. twice daily to be uptitrated as outpatient. Patient received diabetic education. (2) Dehydration Euvolemic. Normotensive. Most likely due to nausea vomiting and low p.o. intake, due to underlying new onset diabetes. (3) Orthostatic hypotension Resolved. Due to low p.o. intake and vomiting. Monitored volume status. Fall precautions implemented. Encouraged p.o. fluid intake. (4) PATRICA (acute kidney injury) Resolved. Prerenal most likely due to intravascular volume depletion. Denies any history of CKD. (5) Hyperkalemia Resolved. Likely due to metabolic acidosis. Started on hyperkalemia protocol. (6) Diabetic ketoacidosis Resolved. Most likely due to underlying new onset diabetes. Likely type II given family history and age. Was admitted to [facility], aggressive volume resuscitation guided by volume status, DKA protocol. (7) Hypernatremia Resolved. Hypovolemic hypernatremia likely due to free water loss due to severe hyperglycemia and DKA. Was a started on hypernatremia protocol. (8) Constipation Resolved. Started on bowel regimen. Encourage high-fiber diet. (9) Hyperlipidemia Triglycerides 407, cholesterol 233, LDL 151, HDL 42. Given above lipid profile complicated by new onset diabetes will start on atorvastatin high intensity. Diet and lifestyle modification recommended. Discharged on medium intensity statins. Encouraged to follow-up with PCP for LFT monitoring. Physical Exam Vital Signs: Temp Pulse Resp BP Pulse Ox 97.9 F 75 18 129/80 H 99 04/11/19 16:55 04/11/19 16:55 04/11/19 16:55 04/11/19 16:55 04/11/19 16:55 Intake & Output 04/12/19 04/13/19 04/14/19 05:59 06:59 06:59 Intake Total Balance Weight General appearance: PRESENT: no acute distress, well-developed, well-nourished Head exam: PRESENT: atraumatic, normocephalic Respiratory exam: PRESENT: clear to auscultation vee. ABSENT: rales, rhonchi, wheezes Cardiovascular exam: PRESENT: RRR. ABSENT: diastolic murmur, rubs, systolic murmur GI/Abdominal exam: PRESENT: normal bowel sounds, soft. ABSENT: distended, guarding, mass, organolmegaly, rebound, tenderness Extremities exam: PRESENT: full ROM. ABSENT: calf tenderness, clubbing, pedal edema Neurological exam: PRESENT: alert, awake, oriented to person, oriented to place, oriented to time, oriented to situation, CN II-XII grossly intact. ABSENT: motor sensory deficit Results Laboratory Results: WBC 8.8 10^3/uL (4.0-10.5) 04/09/19 05:30 RBC 5.75 10^6/uL (4.35-5.55) H 04/09/19 05:30 Hgb 17.8 g/dL (13.5-17.0) H 04/09/19 05:30 Hct 51.1 % (37.9-51.0) H 04/09/19 05:30 MCV 89 fl (80-97) D 04/09/19 05:30 MCH 31.0 pg (27.0-33.4) 04/09/19 05:30 MCHC 34.8 g/dL (32.0-36.0) 04/09/19 05:30 RDW 12.7 % (11.5-14.0) 04/09/19 05:30 Plt Count 241 10^3/uL (150-450) 04/09/19 05:30 Lymph % (Auto) 21.9 % (13-45) 04/09/19 05:30 Cascade % (Auto) 6.3 % (3-13) 04/09/19 05:30 Eos % (Auto) 0.3 % (0-6) 04/09/19 05:30 Baso % (Auto) 0.3 % (0-2) 04/09/19 05:30 Absolute Neuts (auto) 6.2 10^3/uL (1.7-8.2) 04/09/19 05:30 Absolute Lymphs (auto) 1.9 10^3/uL (0.5-4.7) 04/09/19 05:30 Absolute Monos (auto) 0.6 10^3/uL (0.1-1.4) 04/09/19 05:30 Absolute Eos (auto) 0.0 10^3/uL (0.0-0.6) 04/09/19 05:30 Absolute Basos (auto) 0.0 10^3/uL (0.0-0.2) 04/09/19 05:30 Seg Neutrophils % 71.2 % (42-78) 04/09/19 05:30 VBG pH 7.21 (7.30-7.42) L 04/08/19 13:00 VBG pCO2 50.2 mmHg (35-63) 04/08/19 13:00 VBG HCO3 19.6 mmol/L (20-32) L 04/08/19 13:00 VBG Base Excess -8.6 mmol/L 04/08/19 13:00 Sodium 146.2 mmol/L (137-145) H 04/11/19 04:14 Potassium 3.8 mmol/L (3.6-5.0) 04/11/19 04:14 Chloride 112 mmol/L (98-107) H 04/11/19 04:14 Carbon Dioxide 29 mmol/L (22-30) 04/11/19 04:14 Anion Gap 5 (5-19) 04/11/19 04:14 BUN 19 mg/dL (7-20) 04/11/19 04:14 Creatinine 0.71 mg/dL (0.52-1.25) 04/11/19 04:14 Est GFR ( Amer) > 60 (>60) 04/11/19 04:14 Est GFR (MDRD) Non-Af > 60 (>60) 04/11/19 04:14 Glucose 238 mg/dL (75-110) H 04/11/19 04:14 POC Glucose 323 mg/dL (70-110) H 04/11/19 16:17 Hemoglobin A1c % > 14.0 % (4.7-6.0) H 04/08/19 10:00 Calcium 9.3 mg/dL (8.4-10.2) 04/11/19 04:14 Magnesium 2.5 mg/dL (1.6-2.3) H 04/10/19 04:06 Total Bilirubin 0.6 mg/dL (0.2-1.3) 04/08/19 10:00 Direct Bilirubin 0.4 mg/dL (0.0-0.4) 04/08/19 10:00 Neonat Total Bilirubin Not Reportable 04/08/19 10:00 Neonat Direct Bilirubin Not Reportable 04/08/19 10:00 Neonat Indirect Bili Not Reportable 04/08/19 10:00 AST 40 U/L (17-59) 04/08/19 10:00 ALT 56 U/L (<50) H 04/08/19 10:00 Alkaline Phosphatase 180 U/L (38-126) H 04/08/19 10:00 Creatine Kinase 168 U/L (55-170) 04/08/19 10:00 Troponin I < 0.012 ng/mL 04/08/19 10:00 Total Protein 7.8 g/dL (6.3-8.2) 04/08/19 10:00 Albumin 5.0 g/dL (3.5-5.0) 04/08/19 10:00 Triglycerides 407 mg/dL (<150) H 04/10/19 04:06 Cholesterol 233.44 mg/dL (0-200) H 04/10/19 04:06 LDL Cholesterol Direct 151 mg/dL (<100) H 04/10/19 04:06 VLDL Cholesterol, Calc UNABLE TO CALCULATE 04/10/19 04:06 HDL Cholesterol 42 mg/dL (>40) 04/10/19 04:06 TSH 0.44 uIU/mL (0.47-4.68) L 04/08/19 10:00 Urine Color COLORLESS 04/08/19 09:54 Urine Appearance CLEAR 04/08/19 09:54 Urine pH 5.0 (5.0-9.0) 04/08/19 09:54 Ur Specific Notus 1.030 04/08/19 09:54 Urine Protein NEGATIVE mg/dL (NEGATIVE) 04/08/19 09:54 Urine Glucose (UA) >=500 mg/dL (NEGATIVE) H 04/08/19 09:54 Urine Ketones 80 mg/dL (NEGATIVE) H 04/08/19 09:54 Urine Blood NEGATIVE (NEGATIVE) 04/08/19 09:54 Urine Nitrite (Reflex) NEGATIVE (NEGATIVE) 04/08/19 09:54 Urine Bilirubin NEGATIVE (NEGATIVE) 04/08/19 09:54 Urine Urobilinogen NEGATIVE mg/dL (<2.0) 04/08/19 09:54 Leukocyte Esterase Rfl NEGATIVE (NEGATIVE) 04/08/19 09:54 Urine RBC (Auto) 0 /HPF 04/08/19 09:54 Urine WBC (Reflex) < 1 /HPF 04/08/19 09:54 Urine Mucus (Auto) RARE /LPF 04/08/19 09:54 Urine Ascorbic Acid NEGATIVE (NEGATIVE) 04/08/19 09:54 Serum Alcohol < 10 mg/dL (NONE DETECTED) 04/08/19 10:00 04/08/19 10:00 Troponin I < 0.012 Impressions: Chest X-Ray 04/08/19 09:41 IMPRESSION: NO ACUTE RADIOGRAPHIC FINDING IN THE CHEST. Stroke Is this a Stroke Patient?: No Acute Heart Failure - Is this a Heart Failure Patient?: No
== END 2019-04-11 17:30 | disposition home or self-care (01) | DRG 638 ==
LOC: ER 09:18 → EH 14:30 → 3N 16:11
PROVIDERS: ADMIT Internal Medicine; ATTEND Internal Medicine
DX: E11.10 Type 2 diabetes mellitus with ketoacidosis without coma (principal); N17.9 Acute kidney failure, unspecified; E87.0 Hyperosmolality and hypernatremia; E86.0 Dehydration; I95.1 Orthostatic hypotension; E87.5 Hyperkalemia; E78.5 Hyperlipidemia, unspecified; R42 Dizziness and giddiness; K59.01 Slow transit constipation
CPT/HCPCS: 36415; 71046; 80048; 80053; 80061; 80307; 81001; 82550; 82803; 82947; 82962; 83036; 83519; 83735; 84443; 84484; 85025; 93005; 93010; 96360; 99291; J0610; J1644; J1815; J3490; J7030; J7050

== ENCOUNTER → 2019-07-30 | Outpatient (CLI) | payer OTHER ==
[2019-07-30 11:19] LABS: ABSOLUTE EOSINOPHILS # (AUTO) 0.1 10^3/uL (0.0-0.6); ABSOLUTE LYMPHOCYTES (AUTO) 2.2 10^3/uL (0.5-4.7); ABSOLUTE MONOCYTES (AUTO) 0.4 10^3/uL (0.1-1.4); ABSOLUTE NEUT (AUTO) 3.5 10^3/uL (1.7-8.2); BASOPHILS % (AUTO) 0.8 % (0-2); EOSINOPHILS % (AUTO) 1.7 % (0-6); HEMATOCRIT 46.7 % (37.9-51.0); HEMOGLOBIN 16.1 g/dL (13.5-17.0); LYMPHOCYTES % (AUTO) 34.7 % (13-45); MEAN CORPUSCULAR HEMOGLOBIN 30.2 pg (27.0-33.4); MEAN CORPUSCULAR HGB CONC 34.4 g/dL (32.0-36.0); MEAN CORPUSCULAR VOLUME 88 fl (80-97); MONOCYTES % (AUTO) 5.9 % (3-13); PLATELET COUNT 246 10^3/uL (150-450); RED BLOOD COUNT 5.31 10^6/uL (4.35-5.55); RED CELL DISTRIBUTION WIDTH 13.4 % (11.5-14.0); SEGMENTED NEUTROPHILS % (AUTO) 56.9 % (42-78); TOTAL CELLS COUNTED % (AUTO) 100 %; WHITE BLOOD COUNT 6.2 10^3/uL (4.0-10.5)
[2019-07-30 11:30] LABS: ALBUMIN 4.8 g/dL (3.5-5.0); ALKALINE PHOSPHATASE 75 U/L (38-126); ANION GAP 7 (5-19); ASPARTATE AMINO TRANSFERASE 28 U/L (17-59); BILIRUBIN,TOTAL 0.4 mg/dL (0.2-1.3); BLOOD UREA NITROGEN 20 mg/dL (7-20); CALCIUM 9.8 mg/dL (8.4-10.2); CARBON DIOXIDE 30 mmol/L (22-30); CHLORIDE 104 mmol/L (98-107); CHOLESTEROL 165.16 mg/dL (0-200); GLUCOSE 101 mg/dL (75-110); POTASSIUM 4.5 mmol/L (3.6-5.0); TOTAL PROTEIN 7.8 g/dL (6.3-8.2); TRIGLYCERIDES 138 mg/dL (<150)
[2019-07-30 11:42] LABS: DIRECT LDL 103 mg/dL (<100)
[2019-07-31 13:37] LABS: CREATININE URINE 242.7 mg/dL (Not Estab.); MICROALBUMIN URINE 8.8 ug/mL (Not Estab.)
== END ==
LOC: CCC 10:22
PROVIDERS: ATTEND Family Medicine
DX: E11.8 Type 2 diabetes mellitus with unspecified complications (principal); E78.5 Hyperlipidemia, unspecified
CPT/HCPCS: 36415; 80053; 80061; 82043; 82570; 83036; 85025

== ENCOUNTER 2019-09-10 12:57 | Emergency (ER) | payer SELFPAY ==
--- NOTE | 2019-09-10 16:47 | ER Document Report ---
ED General <PAMELA BURRELL - Last Filed: 09/10/19 21:23> - General TRAVEL OUTSIDE OF THE [place] IN LAST 30 DAYS: No <ELA ANDRE - Last Filed: 09/10/19 23:12> - General Stated Complaint: HEADACHE,DIZZINESS Primary Care Provider: [facility] [Provider Group] - Follow up in 3-5 days Notes: 39-year-old male with past medical history of diabetes presenting today with vague multiple complaints. He states earlier today he had some tingling down his lower extremities. Tingling down his arms. States he was lightheaded and dizzy. Denies that he is currently having any other symptoms at this time. He states his neck is sore and it feels like a sunburn on the back of his neck but he denies any true headaches. No meningeal signs. He states his eyes will occasionally get blurry but are not blurry right now he denies any nausea or vomiting. He denies any chest pain. states that when he takes a deep breath sometimes it hurts. He takes metformin for his diabetes now. He also takes insulin. He was diagnosed with diabetes a few months ago. States that his symptoms earlier in the day presented like when he was diagnosed with diabetes. Patient again only continues to states he currently has no neck pain but a sensation of a sunburn on the back of his neck. Denies any lightheadedness or dizziness at this time. States occassionally he has had pain with breathing. (ELA ANDRE) - Related Data Allergies/Adverse Reactions: No Known Allergies Allergy (Verified 04/08/19 09:49) Past Medical History - Social History Smoking Status: Unknown if Ever Smoked Family History: Reviewed & Not Pertinent Psychiatric Medical History: Denies: Hx Depression <ELA ANDRE - Last Filed: 09/10/19 23:12> Review of Systems - Review of Systems Constitutional: See HPI EENT: No symptoms reported Cardiovascular: No symptoms reported Respiratory: No symptoms reported Gastrointestinal: No symptoms reported Genitourinary: No symptoms reported Male Genitourinary: No symptoms reported Musculoskeletal: No symptoms reported Skin: No symptoms reported <ELA ANDRE - Last Filed: 09/10/19 23:12> Physical Exam - Vital signs Interpretation: Bradycardic. No: Tachypneic, Febrile <ELA ANDRE - Last Filed: 09/10/19 23:12> - Vital signs Vitals: Temp Pulse Resp BP Pulse Ox 97.9 F 45 L 18 112/63 100 09/10/19 15:21 09/10/19 15:21 09/10/19 15:21 09/10/19 15:21 09/10/19 15:21 - Notes Notes: Adult General: GENERAL: Alert, interacts well. No acute distress HEAD: Normocephalic, atraumatic EYES: Pupils equal, round and reactive to light. Extraocular movements intact. ENT: Airway patent. Nares patent. NECK: Full range of motion. Supple. Trachea midline. No lymphadenopathy. LUNGS: Clear to auscultation bilaterally, no wheezes, rales, or rhonchi. No respiratory distress. Nontender chest wall. HEART: Regular rate and rhythm. No murmurs, rubs or gallops. ABDOMEN: Soft, nontender. Nondistended. GENITOURINARY: Deferred EXTREMITIES: Moves all 4 extremities spontaneously. BACK: No cervical, thoracic, lumbar midline tenderness. No saddle anesthesia, normal distal neurovascular exam. Moves all extremities with full range of motion. NEUROLOGICAL: Alert and oriented x3. Normal speech. Cranial nerves II through XII grossly intact. Strength 5/ 5 in all extremities. PSYCH: Normal affect, normal mood. SKIN: Warm, dry, normal turgor. No rashes or lesions noted. (ELA ANDRE) Course - Laboratory Result Diagrams: 09/10/19 17:18 09/10/19 17:18 <PAMELA BURRELL - Last Filed: 09/10/19 21:23> - Laboratory Result Diagrams: 09/10/19 17:18 09/10/19 17:18 <ELA ANDRE - Last Filed: 09/10/19 23:12> - Re-evaluation Re-evalutation: 09/10/19 21:25 On my evaluation patient is smiling, asymptomatic, well-appearing. I did review patient's labs including both troponins which were negative. His glucose is unremarkable, he is not acidotic. No concerning findings except his monitoring does show episodes of bradycardia. Patient was started on 100 mg of metoprolol succinate ER yesterday along with metformin and atorvastatin. Patient states that his medications were restarted and he used to be on this. However he states that he started feeling weak this morning after taking his medications and he feels like his symptoms earlier were from his medications. However he denies dizziness, he is able to stand without any symptoms, he does not have any lightheadedness, he has not passed out. Because he is asymptomatic with his bradycardia after discussion decision was made to reduce patient's dose of the metoprolol, had this closely rechecked with primary care, and have him return for any concerning symptoms. I discussed his work-up, instructions, and return precautions in detail. Patient states understanding and agreement with plan. Stable, asymptomatic, well-appearing at time of discharge, heart rate of 55 on me eval. (PAMELA BURRELL) Patient is well appearing. Labs so far have been unremarkable. Pending tropo nins. Takes metoprolol, atorvostatin, and metoprolol. Trops were ordered as patient has had vague complaints so concern for cardiac etiologies. If trops are negative, will discharge patient home with follow up with primary care. (ELA ANDRE) - Vital Signs Vital signs: Temp Pulse Resp BP Pulse Ox 97.9 F 45 L 15 113/87 H 98 09/10/19 16:20 09/10/19 15:21 09/10/19 21:36 09/10/19 21:36 09/10/19 21:36 - Laboratory Laboratory results interpreted by ar: 09/10/19 18:12 Urine Ascorbic Acid 40 H Discharge <PAMELA BURRELL - Last Filed: 09/10/19 21:23> <ELA ANDRE - Last Filed: 09/10/19 23:12> - Discharge Clinical Impression: Generalized weakness, Paresthesias Condition: Stable Disposition: HOME, SELF-CARE Additional Instructions: Your work-up today does not show any concerning findings, however your monitoring does show that your heart rate is slightly too slow. Cut your metoprolol medication in half (take a half dose, which is 50 mg, for each dose). Have your heart rate and blood pressure rechecked with the primary care clinic (call the listed referral below tomorrow to set this up). Continue the metformin and the atorvastatin. Come back if you get worse (if you get chest pain, if you pass out, if you get very dizzy, or if something is not right). Jacome trabajo hoy en da no muestra ningn hallazgo preocupante, sin embargo, jacome monitoreo muestra que jacome frecuencia cardaca es ligeramente demasiado lenta. Juan Carlos jacome medicamento metoprolol por la mitad (tome shekhar media dosis, que es de 50 mg, para cada dosis). Emma que jacome frecuencia cardaca y presin arterial se vuelvan a comprobar con la clnica de atencin primaria (llame a la referencia que se indica a continuacin maana para configurar esto). Contine la metformina y la atorvastatina. Vuelve si empeoras (si tienes dolor en el pecho, si te desmayas, si te mareas mucho o si algo no est hollie). Forms: Return to Work Referrals: [facility] [Provider Group] - Follow up in 3-5 days
--- NOTE | 2019-09-10 17:24 | RADIOLOGY REPORT (SQ) ---
EXAM DESCRIPTION: CHEST SINGLE VIEW IMAGES COMPLETED DATE/TIME: 09/10/2019 5:15 pm REASON FOR STUDY: pain with inspiration COMPARISON: 04/08/2019 EXAM PARAMETERS: NUMBER OF VIEWS: One view. TECHNIQUE: Single frontal radiographic view of the chest acquired. RADIATION DOSE: NA LIMITATIONS: None. FINDINGS: LUNGS AND PLEURA: No opacities, masses or pneumothorax. No pleural effusion. MEDIASTINUM AND HILAR STRUCTURES: No masses. Contour normal. HEART AND VASCULAR STRUCTURES: Heart normal in size. Normal vasculature. BONES: No acute findings. HARDWARE: None in the chest. OTHER: No other significant finding. IMPRESSION: NO ACUTE RADIOGRAPHIC FINDING IN THE CHEST. TECHNICAL DOCUMENTATION: JOB ID: [id number] 2010 [employer]- All Rights Reserved Reading location - IP/workstation name: [email or web address]
[2019-09-10 18:00] LABS: ABSOLUTE EOSINOPHILS # (AUTO) 0.1 10^3/uL (0.0-0.6); ABSOLUTE LYMPHOCYTES (AUTO) 1.9 10^3/uL (0.5-4.7); ABSOLUTE MONOCYTES (AUTO) 0.4 10^3/uL (0.1-1.4); ABSOLUTE NEUT (AUTO) 5.3 10^3/uL (1.7-8.2); BASOPHILS % (AUTO) 0.5 % (0-2); EOSINOPHILS % (AUTO) 0.8 % (0-6); HEMATOCRIT 45.6 % (37.9-51.0); HEMOGLOBIN 15.3 g/dL (13.5-17.0); MEAN CORPUSCULAR HEMOGLOBIN 29.6 pg (27.0-33.4); MEAN CORPUSCULAR HGB CONC 33.7 g/dL (32.0-36.0); MEAN CORPUSCULAR VOLUME 88 fl (80-97); MONOCYTES % (AUTO) 4.6 % (3-13); PLATELET COUNT 261 10^3/uL (150-450); RED BLOOD COUNT 5.18 10^6/uL (4.35-5.55); RED CELL DISTRIBUTION WIDTH 13.7 % (11.5-14.0); SEGMENTED NEUTROPHILS % (AUTO) 69.1 % (42-78); TOTAL CELLS COUNTED % (AUTO) 100 %; WHITE BLOOD COUNT 7.7 10^3/uL (4.0-10.5)
[2019-09-10 18:08] LABS: ALBUMIN 4.6 g/dL (3.5-5.0); ALKALINE PHOSPHATASE 64 U/L (38-126); ANION GAP 6 (5-19); ASPARTATE AMINO TRANSFERASE 22 U/L (17-59); BILIRUBIN,TOTAL 0.9 mg/dL (0.2-1.3); BLOOD UREA NITROGEN 17 mg/dL (7-20); CALCIUM 9.5 mg/dL (8.4-10.2); CARBON DIOXIDE 29 mmol/L (22-30); CHLORIDE 104 mmol/L (98-107); GLUCOSE 95 mg/dL (75-110); POTASSIUM 4.3 mmol/L (3.6-5.0); TOTAL PROTEIN 7.4 g/dL (6.3-8.2)
--- NOTE | 2019-09-10 18:49 | EKG REPORT ---
SEVERITY:- OTHERWISE NORMAL ECG - SINUS RHYTHM BORDERLINE RIGHT AXIS DEVIATION : Confirmed by: John Catalan MD 10-Sep-2019 18:49:29
[2019-09-10 18:59] LABS: APPEARANCE,URINE CLEAR; BILIRUBIN,URINE NEGATIVE (NEGATIVE); COLOR,URINE YELLOW; GLUCOSE, URINE NEGATIVE (NEGATIVE); KETONES,URINE NEGATIVE (NEGATIVE); LEUKOCYTE ESTERASE,URINE NEGATIVE (NEGATIVE); NITRITE,URINE NEGATIVE (NEGATIVE); PROTEIN,URINE NEGATIVE (NEGATIVE); URINE SPECIFIC GRAVITY 1.027; UROBILINOGEN,URINE NEGATIVE mg/dL (<2.0)
[2019-09-10 21:42] VITALS: BP 113/87
== END 2019-09-10 21:42 | disposition home or self-care (01) ==
LOC: ER 12:57
DX: R53.1 Weakness (principal); R20.2 Paresthesia of skin; R51 Headache; R42 Dizziness and giddiness; E11.9 Type 2 diabetes mellitus without complications; Z79.84 Long term (current) use of oral hypoglycemic drugs
CPT/HCPCS: 36415; 71045; 80053; 81001; 84484; 85025; 93005; 93010; 99284

== ENCOUNTER → 2020-02-24 | Outpatient (CLI) | payer OTHER ==
[2020-02-24 08:19] LABS: ABSOLUTE EOSINOPHILS # (AUTO) 0.1 10^3/uL (0.0-0.6); ABSOLUTE LYMPHOCYTES (AUTO) 1.8 10^3/uL (0.5-4.7); ABSOLUTE MONOCYTES (AUTO) 0.3 10^3/uL (0.1-1.4); ABSOLUTE NEUT (AUTO) 3.7 10^3/uL (1.7-8.2); BASOPHILS % (AUTO) 0.6 % (0-2); EOSINOPHILS % (AUTO) 1.7 % (0-6); HEMOGLOBIN 15.5 g/dL (13.5-17.0); LYMPHOCYTES % (AUTO) 29.8 % (13-45); MEAN CORPUSCULAR HEMOGLOBIN 30.1 pg (27.0-33.4); MEAN CORPUSCULAR HGB CONC 33.7 g/dL (32.0-36.0); MEAN CORPUSCULAR VOLUME 89 fl (80-97); PLATELET COUNT 279 10^3/uL (150-450); RED BLOOD COUNT 5.14 10^6/uL (4.35-5.55); RED CELL DISTRIBUTION WIDTH 13.5 % (11.5-14.0); SEGMENTED NEUTROPHILS % (AUTO) 62.9 % (42-78); TOTAL CELLS COUNTED % (AUTO) 100 %; WHITE BLOOD COUNT 5.9 10^3/uL (4.0-10.5)
[2020-02-24 08:46] LABS: ALBUMIN 4.5 g/dL (3.5-5.0); ALKALINE PHOSPHATASE 71 U/L (38-126); ANION GAP 7 (5-19); ASPARTATE AMINO TRANSFERASE 26 U/L (17-59); BILIRUBIN,TOTAL 0.7 mg/dL (0.2-1.3); BLOOD UREA NITROGEN 17 mg/dL (7-20); CALCIUM 9.4 mg/dL (8.4-10.2); CARBON DIOXIDE 31 mmol/L (22-30); CHLORIDE 101 mmol/L (98-107); CHOLESTEROL 141.15 mg/dL (0-200); GLUCOSE 111 mg/dL (75-110); POTASSIUM 4.7 mmol/L (3.6-5.0); TOTAL PROTEIN 7.1 g/dL (6.3-8.2); TRIGLYCERIDES 114 mg/dL (<150)
[2020-02-24 08:57] LABS: DIRECT LDL 70 mg/dL (<100)
== END ==
LOC: CCC 07:21
PROVIDERS: ATTEND Family Medicine
DX: Z13.9 Encounter for screening, unspecified (principal)
CPT/HCPCS: 36415; 80053; 80061; 83036; 85025